=== PATIENT | male | born 1965 | race Asian ===

== ENCOUNTER 2018-02-01 21:11 | Emergency (ER) | payer SELFPAY ==
--- NOTE | 2018-02-01 22:58 | EDPHY ---
H & P Time Seen by Provider: 02/01/18 21:44 HPI/ROS: CHIEF COMPLAINT: Right hand laceration HISTORY OF PRESENT ILLNESS: 52-year-old male presents to the emergency department by private vehicle with laceration to his right hand. The patient was at home and was cleaning a glass which broke which cut him on the dorsal aspect of his right hand. The incident happened just prior to arrival. Last tetanus shot was 1 year ago. He is right-hand dominant. Denies any other trauma or injury. ROS: Denies numbness or tingling in his fingers, retained foreign body or other injury. Past Medical/Surgical History: Hypertension Social History: and lives in [place] Smoking Status: Former smoker Physical Exam: On examination the patient has a 3 and 0.5 cm laceration to the dorsal aspect of the right hand overlying 2nd metacarpal. There is slow active bleeding noted. There is also a smaller 1 cm superficial flap laceration overlying the dorsal aspect of the proximal phalanx of the right 2nd digit. He has full range of motion of his fingers. He has normal sensation to light touch with normal 2 point discrimination. No palpable bony tenderness. No rotational deformities noted. No obvious tendon laceration noted, however patient appears to have cut through the tendon sheath on the dorsal aspect of his right hand. Constitutional: Initial Vital Signs Temperature (C) 36.8 C 02/01/18 21:13 Heart Rate 77 02/01/18 21:13 Respiratory Rate 18 02/01/18 21:13 Blood Pressure 150/97 H 02/01/18 21:13 O2 Sat (%) 98 02/01/18 21:13 O2 Delivery Mode Room Air Allergies/Adverse Reactions: No Known Allergies Allergy (Unverified 04/27/15 19:22) Home Medications: Medication Instructions Recorded Olmesartan Medoxomil [Benicar] 20 mg PO DAILY 04/27/15 Omeprazole [Prilosec] 04/27/15 Cephalexin [Keflex] 500 mg PO QID #28 cap 02/01/18 MDM/Departure - [facility] Procedures: Laceration repair. Verbal consent was obtained from the patient. The 3.5 cm laceration on the right hand was anesthetized using 1% lidocaine with epinephrine. The wound was irrigated with saline, draped and explored to its base with a gloved finger. Laceration extends to the tendon sheath but no obvious laceration to the extensor tendon. The wound was repaired with 4 0 Ethilon, 6 sutures. The wound repair was complex. The procedure was performed by myself. Medications Given: Discontinued Medications Cephalexin (Keflex 500 Mg Prepack#4) 1 btl [place] EDNOW ONE PRN Reason: Protocol Stop: 02/01/18 23:10 Last Admin: 02/01/18 23:16 Dose: 1 btl ED Course/Re-evaluation: 52-year-old male presents to the emergency department with right hand laceration. The wound was repaired. I was concerned that the patient had a tendon sheath laceration. He has full range of motion of his fingers. I do not appreciate an obvious tendon laceration. The wound was closed, see procedure note. The patient will be started on antibiotics. He was placed in Alumafoam splint and dressing. - Depart Disposition: Home, Routine, Self-Care Clinical Impression: Laceration of right hand Qualifiers: Encounter type: initial encounter Foreign body presence: without foreign body Qualified Code(s): S61.411A - Laceration without foreign body of right hand, initial encounter Condition: Good Instructions: Cephalexin (By mouth), Care For Your Stitches (ED), Laceration ( ED), Acute Wounds (ED) Additional Instructions: Wound Care Follow-Up: Removal of sutures in 10 days. Suture removal is complimentary in uncomplicated cases. Infection or abnormal findings would require reevaluation by the MD. In that case, you may be billed. Keflex as directed for one week to prevent infection. You need to follow up with the orthopedic hand surgeon on-call. Year laceration is deep and extends to the tendon sheath. Keep the dressing and splint on until follow-up with them this week. Prescriptions: Cephalexin [Keflex] 500 mg PO QID #28 cap Referrals: Kadeem Ortiz MD [Medical Doctor] - 1-2 days without fail (Orthopedic hand surgeon on-call)
[2018-02-01] MEDS ORDERED: CEPHALEXIN 500MG PREPACK#4 BTL TAKEHOME ONE (23:09)
[2018-02-01 23:18] VITALS: BP 135/83; PULSE 68; RESP 16; TEMP 97.9; O2SAT 96
== END 2018-02-01 23:17 | disposition home or self-care (01) ==
PROC: 0HQFXZZ Repair Right Hand Skin, External Approach (ICD-10-PCS; principal; 2018-02-01)
DX: S61.411A Laceration without foreign body of right hand, initial encounter (principal); I10 Essential (primary) hypertension; Z87.891 Personal history of nicotine dependence; W25.XXXA Contact with sharp glass, initial encounter; Y92.009 Unspecified place in unspecified non-institutional (private) residence as the place of occurrence of the external cause; Y99.8 Other external cause status; Y93.G1 Activity, food preparation and clean up
CPT/HCPCS: L3925